=== PATIENT | male | born 1970 | race Caucasian/White ===

== ENCOUNTER 2017-04-21 06:05 | Emergency (ER) | payer OTHER ==
[2017-04-21 07:05] VITALS: BP 123/90
== END 2017-04-21 07:05 | disposition other institution (70) ==
LOC: ED 06:05
DX: Z02.89 Encounter for other administrative examinations (principal)
CPT/HCPCS: 82962; J1815

== ENCOUNTER 2017-04-21 06:05 | Emergency (ER) | payer OTHER | END 2017-04-21 07:05 | disposition other institution (70) | LOC: ED 06:05 | DX: Z02.89 Encounter for other administrative examinations (principal) | CPT/HCPCS: 82962; J1815 ==

== ENCOUNTER 2017-12-14 22:09 | Emergency (ER) | payer OTHER ==
[~2017-12-14] VITALS: Ht 170.2 cm; Wt 79.4 kg
[2017-12-14 22:17] VITALS: Ht 170.2 cm; Wt 79.4 kg
[2017-12-14 23:56] LABS: BASOPHIL % 0.3 % (0-2); PLATELET COUNT 227 x10^3mcL (130-400); RED CELL DISTRIBUTION WIDTH 13.6 % (11.5-14.5)
[2017-12-15 00:04] LABS: CALCIUM 8.2 mg/dL (8.5-10.1); CARBON DIOXIDE 23.5 mmol/L (21-32); CHLORIDE SERUM 96 mmol/L (98-107); CREATININE SERUM 1.1 mg/dL (0.7-1.3); GFR1 > 60 mL/min; GLUCOSE SERUM 277 mg/dL (74-106); POTASSIUM SERUM 3.6 mmol/L (3.5-5.1); SODIUM SERUM 131 mmol/L (136-145)
[2017-12-15 00:09] LABS: ALKALINE PHOSPHATASE 74 U/L (46-116); ALT/SGPT 52 U/L (16-63); AST/SGOT 23 U/L (15-37); BILIRUBIN TOTAL 0.4 mg/dL (0.20-1.00); TOTAL PROTEIN, SERUM 6.7 g/dL (6.4-8.2)
[2017-12-15 00:15] LABS: ALBUMIN 3.2 g/dL (3.4-5.0)
[2017-12-15 00:23] LABS: CK-MB < 0.5 ng/mL (0-3.6); CREATINE KINASE 62 U/L (39-308)
[2017-12-15 02:12] LABS: microscopic required? NO
[2017-12-15 02:49] LABS: UA SPECIFIC GRAVITY 1.015 (1.005-1.035); urine erythrocyte NEGATIVE (NEGATIVE)
[2017-12-15 03:06] LABS: AMPHETAMINE QUAL UR POSITIVE (NEG <=1000)
[2017-12-15 06:02] VITALS: BP 120/77
== END 2017-12-15 06:02 | disposition home or self-care (01) ==
LOC: ED 22:09
PROVIDERS: Emergency Medicine
DX: J11.1 Influenza due to unidentified influenza virus with other respiratory manifestations (principal); I10 Essential (primary) hypertension; E11.9 Type 2 diabetes mellitus without complications
CPT/HCPCS: 36600; 82962; 83880; 87804; J1885; J7030

== ENCOUNTER 2019-08-26 05:59 | Emergency (ER) | payer OTHER ==
[~2019-08-26] VITALS: Ht 170.2 cm; Wt 79.4 kg
[2019-08-26 06:32] VITALS: BP 162/111
== END 2019-08-26 06:43 | disposition home or self-care (01) ==
LOC: ED 05:59
DX: E11.65 Type 2 diabetes mellitus with hyperglycemia (principal); I16.0 Hypertensive urgency
CPT/HCPCS: 82962